=== PATIENT | male | born 1945 | race Caucasian/White ===

== ENCOUNTER → 2016-11-24 | Outpatient (CLI) | payer OTHER, MEDICARE | LOC: BHLMT 09:15 | PROVIDERS: ATTEND Internal Medicine Cardiovascular Disease | DX: I25.10 Atherosclerotic heart disease of native coronary artery without angina pectoris (principal); I10 Essential (primary) hypertension; E78.5 Hyperlipidemia, unspecified | CPT/HCPCS: 93005-PO ==

== ENCOUNTER → 2016-11-30 | Outpatient (CLI) | payer OTHER, MEDICARE | LOC: BHFA 14:00 | PROVIDERS: ATTEND Internal Medicine Interventional Cardiology | DX: I25.10 Atherosclerotic heart disease of native coronary artery without angina pectoris (principal) | CPT/HCPCS: 78452; 93017; A9500 ==

== ENCOUNTER 2017-12-19 10:47 | Emergency (ER) | payer OTHER, MEDICARE ==
[2017-12-19] MEDS ORDERED: NS 1,000 ML IV ONE (11:04)
[2017-12-19] MEDS ORDERED: MECLIZINE HCL 25 MG TAB PO ONE (11:05)
--- NOTE | 2017-12-19 11:07 | EDPHY ---
HPI/HX/ROS/PE/MDM Narrative: CHIEF COMPLAINT: "Very unsteady, dizzy" HPI: The patient is a 72 y/o male with a history of hypertension complaining of waxing and waning dizziness and unsteadiness that began after waking Monday morning, 3 days ago. He describes sitting up and then the "room went sideways." Symptoms improve at rest and while keeping his head still, but do not dissipate completely. He has never experienced symptoms like this previously and denies any recent trauma or illness. No associated pain, weakness, paresthesias, speech difficulties, or other complaints. He denies cardiac or neurologic disease history. No recent travel. REVIEW OF SYSTEMS: Aside from elements discussed in the HPI, a comprehensive 10-point review of systems was reviewed and is negative. PMH: Hypertension, hypercholesterolemia, perirectal abscess. Prior medical records reviewed including ED note 05/08/16 for rectal abscess. SOCIAL HISTORY: Former smoker. Lives in [place]. Retired. . PHYSICAL EXAM: General:Patient is alert, in no acute distress. ENT:Eyes are normal to inspection. Left horizontal nystagmus. ENT inspection normal. Neck: Normal inspection. Full range of motion. Respiratory:No respiratory distress. Breath sounds normal bilaterally. Cardiovascular: Regular rate and rhythm. Strong peripheral pulses. Normal cap refill. Abdomen:The abdomen is nontender to palpation. There are no peritoneal signs. Back: Normal to inspection. No tenderness to palpation. Skin: Normal color. No rash. Warm and dry. Extremities: Normal appearance. Full range of motion. Neuro: Oriented x3. Normal motor function. Normal sensory function. No pronator drift. Normal [id number]. ED Course: This is a 72 y/o male who presents with a 3-day history of dizziness aggravated by movement. He has mild left-sided nystagmus and an otherwise nonfocal neuro exam. Suspect positional vertigo. Plan for IV, labs, EKG, and symptom management. 50mg PO Meclizine and 1L IV NS ordered. The 12 lead EKG was interpreted by myself. See hard copy and/or "tracemaster" electronic copy for interpretation. 1222: Patient attempted to sit up and immediately felt dizzy and unsteady after treatment with Meclizine. Plan for head CT to rule out acute abnormality. 1307: Head CT is negative for acute process. MDM: This patient presents with signs and symptoms of peripheral vertigo. There are no signs of cerebellar CVA, as patient has normal cerebellar exam and acuity of onset suggests peripheral rather than central pathology. Patient was treated with meclizine and feels much better. CTH for screening is negative. Patient is comfortable going home without further testing. We discussed strict return precautions. - Data Points Imaging: Discussed imaging studies w/ butt maker Radiologist, I viewed and interpreted images myself Laboratory Results: Laboratory Results 12/19/17 11:10 12/19/17 11:10 12/19/17 12/19/17 11:10 11:10 WBC 6.33 10^3/uL 10^3/uL (3.80-9.50) RBC 4.57 10^6/uL 10^6/uL (4.40-6.38) Hgb 15.8 g/dL g/dL (13.7-17.5) Hct 45.0 % % (40.0-51.0) MCV 98.5 fL fL (81.5-99.8) MCH 34.6 pg H pg (27.9-34.1) MCHC 35.1 g/dL g/dL (32.4-36.7) RDW 12.3 % % (11.5-15.2) Plt Count 213 10^3/uL 10^3/uL (150-400) MPV 10.6 fL fL (8.7-11.7) Neut % (Auto) 49.5 % % (39.3-74.2) Lymph % (Auto) 36.0 % % (15.0-45.0) Casey % (Auto) 11.7 % % (4.5-13.0) Eos % (Auto) 1.4 % % (0.6-7.6) Baso % (Auto) 1.1 % % (0.3-1.7) Nucleat RBC Rel Count 0.0 % % (0.0-0.2) Absolute Neuts (auto) 3.13 10^3/uL 10^3/uL (1.70-6.50) Absolute Lymphs (auto) 2.28 10^3/uL 10^3/uL (1.00-3.00) Absolute Monos (auto) 0.74 10^3/uL 10^3/uL (0.30-0.80) Absolute Eos (auto) 0.09 10^3/uL 10^3/uL (0.03-0.40) Absolute Basos (auto) 0.07 10^3/uL 10^3/uL (0.02-0.10) Absolute Nucleated RBC 0.00 10^3/uL 10^3/uL (0-0.01) Immature Gran % 0.3 % % (0.0-1.1) Immature Gran # 0.02 10^3/uL 10^3/uL (0.00-0.10) Sodium 142 mEq/L mEq/L (135-145) Potassium 4.5 mEq/L mEq/L (3.5-5.2) Chloride 107 mEq/L mEq/L (97-110) Carbon Dioxide 22 mEq/l mEq/l (22-31) Anion Gap 13 mEq/L mEq/L (8-16) BUN 13 mg/dL mg/dL (7-23) Creatinine 0.8 mg/dL mg/dL (0.7-1.3) Estimated GFR > 60 Glucose 86 mg/dL mg/dL (70-100) Calcium 9.5 mg/dL mg/dL (8.5-10.4) Troponin I < 0.012 ng/mL ng/mL (0.000-0.034) Medications Given: Discontinued Medications Sodium Chloride (Ns) 1,000 mls @ 0 mls/hr IV EDNOW ONE; Wide Open PRN Reason: Protocol Stop: 12/19/17 11:05 Last Admin: 12/19/17 11:18 Dose: 1,000 mls Meclizine HCl (Meclizine Hcl) 50 mg PO EDNOW ONE Stop: 12/19/17 11:06 Last Admin: 12/19/17 11:18 Dose: 50 mg General Time Seen by Provider: 12/19/17 11:00 Initial Vital Signs: Initial Vital Signs Temperature (C) 36.6 C 12/19/17 10:56 Heart Rate 73 12/19/17 10:56 Respiratory Rate 16 12/19/17 10:56 Blood Pressure 158/91 H 12/19/17 10:56 O2 Sat (%) 95 12/19/17 10:56 O2 Delivery Mode Room Air Allergies/Adverse Reactions: venom-honey bee [bee venom (honey bee)] Allergy (Verified 12/19/17 10:54) venom-wasp [Wasp Venom] Allergy (Verified 12/19/17 10:54) Home Medications: Medication Instructions Recorded Atorvastatin Calcium 12/19/17 Flonase Allergy Relief 12/19/17 Meclizine HCl [Meclizine HCl 25 mg 25 mg PO TID PRN #14 tab 12/19/17 (RX,OTC)] Ondansetron Odt [Zofran Odt] 4 mg PO Q4PRN PRN #10 tab 12/19/17 Trandolapril 12/19/17 Verapamil 12/19/17 Departure - Departure Disposition: Home, Routine, Self-Care Clinical Impression: Benign positional vertigo Condition: Good Instructions: Meclizine (By mouth), Ondansetron (By mouth), Vertigo (ED) Additional Instructions: 1. Use Meclizine as directed as needed for vertigo symptoms. 2. Follow up with ENT for unimproved symptoms over the next couple days. You've been referred to Dr. Acosta locally. 3. Return to the ED for severe headache, weakness or numbness on one side of your body, fever, speech difficulty, or other worsening of condition. Referrals: Mallorie Gray MD [Primary Care Provider] - As per Instructions Skylar Acosta MD [Medical Doctor] - As per Instructions Prescriptions: Meclizine HCl [Meclizine HCl 25 mg (RX,OTC)] 25 mg PO TID PRN #14 tab PRN Reason: vertigo Ondansetron Odt [Zofran Odt] 4 mg PO Q4PRN PRN #10 tab PRN Reason: Nausea Report Scribed for: Dung Bah Report Scribed by: Fior Abdalla Date of Report: 12/19/17 Time of Report: 11:07 Physician Review and Approval Statement: Portions of this note were transcribed by an ED scribe. I personally performed the history, physical exam, and medical decision making; and confirm the accuracy of the information in the transcribed note.
--- NOTE | 2017-12-19 11:10 | CPEKG ---
Heart Rate: 61 RR Interval: 984 P-R Interval: 152 QRSD Interval: 86 QT Interval: 432 QTC Interval: 435 P [place]: 59 QRS [place]: 12 T Wave [place]: 47 EKG Severity - NORMAL ECG - EKG Impression: SINUS RHYTHM Electronically Signed By: Dung Bah 19-Dec-2017 14:31:38
[2017-12-19 11:20] LABS: PLATELET COUNT 213 10^3/uL (150-400)
[2017-12-19 13:10] VITALS: BP 154/86
== END 2017-12-19 13:45 | disposition home or self-care (01) ==
DX: H81.10 Benign paroxysmal vertigo, unspecified ear (principal); I10 Essential (primary) hypertension; E86.9 Volume depletion, unspecified; Z87.891 Personal history of nicotine dependence

== ENCOUNTER → 2018-07-02 | Outpatient (CLI) | payer OTHER, MEDICARE | LOC: BHLMT 15:15 | PROVIDERS: ATTEND Internal Medicine Cardiovascular Disease | DX: I25.10 Atherosclerotic heart disease of native coronary artery without angina pectoris (principal); G47.33 Obstructive sleep apnea (adult) (pediatric); I10 Essential (primary) hypertension; E78.5 Hyperlipidemia, unspecified | CPT/HCPCS: 93005-PO ==